=== PATIENT | male | born 1955 | race Caucasian/White ===

== ENCOUNTER 2017-06-22 11:00 | Emergency (ER) | payer BC ==
[2017-06-22 12:33] VITALS: BP 136/79
--- NOTE | 2017-06-22 13:10 | UC ---
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 he is outside a lot and could have gotten it at any time. denies fevers/chills/joint aches. no nausea or vomiting. His dtr encouraged him to come in. There is a red rash there now. he believes he got the whole thing out. - History of Current Complaint Chief Complaint: UCSkin Time Seen by Provider: 06/22/17 13:04 Stated Complaint: SKIN COMPLAINT UPPER THIGH - Allergy/Home Medications Allergies/Adverse Reactions: Allergies Allergy/AdvReac Type Severity Reaction Status Date / Time Penicillins Allergy Rash Verified 06/22/17 12:33 Home Medications: Home Medications Amlodipine Besylate-Benazepril [Lotrel 5-20 mg] 1 cap PO DAILY 06/22/17 [ History Confirmed 06/22/17] Hydrocodone-Ibuprofen [Reprexain] 1 tab PO Q5H 06/22/17 [History Confirmed 06/22] Lidocaine 5 % EX Q12H PRN 06/22/17 [History Confirmed 06/22/17] Metformin HCl 2,000 mg PO DAILY 06/22/17 [History Confirmed 06/22/17] Omeprazole CAP* [Prilosec CAP* 20 MG] 20 mg PO BID 06/22/17 [History Confirmed 06/22/17] Pioglitazone TAB* [Actos TAB*] 15 mg PO DAILY 06/22/17 [History Confirmed ] Review of Systems Constitutional: Negative Skin: Rash Eyes: Negative ENT: Negative Respiratory: Negative Cardiovascular: Negative Gastrointestinal: Negative Genitourinary: Negative Motor: Negative Neurovascular: Negative Musculoskeletal: Negative Neurological: Negative Psychological: Negative Is Patient Immunocompromised?: No All Other Systems Reviewed And Are Negative: Yes PMH/Surg Hx/FS Hx/Imm Hx Previously Healthy: Yes Endocrine History: Diabetes Cardiovascular History: Hypertension - Surgical History Surgical History: Yes Surgery Procedure, Year, and Place: RIGHT HIP REPLACEMENT--2008 - Family History Known Family History: Positive: Cardiac Disease - Social History Alcohol Use: None Substance Use Type: None Smoking Status (MU): Never Smoked Tobacco Physical Exam Triage Information Reviewed: Yes Appearance: Well-Appearing, No Pain Distress, Well-Nourished Vital Signs: Initial Vital Signs Temp 97.1 F 06/22/17 12:28 Pulse 73 06/22/17 12:28 Resp 16 06/22/17 12:28 BP 136/79 06/22/17 12:28 Pulse Ox 99 06/22/17 12:28 Vital Signs Reviewed: Yes Eye Exam: Normal ENT Exam: Normal ENT: Positive: Normal ENT inspection Dental Exam: Normal Neck exam: Normal Neck: Positive: Supple, Nontender, No Lymphadenopathy Respiratory Exam: Normal Respiratory: Positive: Lungs clear, Normal breath sounds, No respiratory distress, No accessory muscle use Cardiovascular Exam: Normal Cardiovascular: Positive: RRR, No Murmur, Pulses Normal Abdominal Exam: Normal Abdomen Description: Positive: Nontender, Soft Musculoskeletal Exam: Normal Neurological Exam: Normal Psychological Exam: Normal Skin: Positive: rashes - right upper medial thigh with golf ball sized erythematous rash with centralized darker red teller. no streaks, no discharge. Course/Dx - Course Course Of Treatment: uncertain duration of tic bite w/ rash. will treat with doxy x 21 days. - Differential Diagnoses - Skin Complaint Differential Diagnoses: Other - Erythema Migrans, lyme disease, tic bite - Diagnoses Provider Diagnoses: lyme disease, tic bite, erythema migrans Discharge - Discharge Plan Condition: Stable Disposition: HOME Prescriptions: Doxycycline (Monohydrate) [Doxycycline Monohydrate] 100 mg PO BID #21 cap Patient Education Materials: Tick Bite (ED), Lyme Disease (ED) Referrals: Tyrone Nava DO [Primary Care Provider] - 2 Days Additional Instructions: Make sure to take a probiotic daily while on antibiotics to help prevent a potential complication of antibiotic use called c diff. Some well known brands that can be found OTC are florastor, CFEngine and AGNITiO. Make sure to complete the entire prescription unless advised otherwise by your health care provider. -make sure to avoid sun exposure and take precautions to sunburn while you are on doxycycline.
== END 2017-06-22 13:25 | disposition home or self-care (01) ==
LOC: UCCORT 11:00
DX: S70.361A Insect bite (nonvenomous), right thigh, initial encounter (principal); A69.20 Lyme disease, unspecified; E11.9 Type 2 diabetes mellitus without complications; I10 Essential (primary) hypertension; W57.XXXA Bitten or stung by nonvenomous insect and other nonvenomous arthropods, initial encounter; Z96.641 Presence of right artificial hip joint; Z88.0 Allergy status to penicillin
CPT/HCPCS: 99212; G0463

== ENCOUNTER 2017-11-18 09:07 | Emergency (ER) | payer BC ==
[2017-11-18 10:50] VITALS: BP 157/73
--- NOTE | 2017-11-18 11:43 | ED ---
Throat Pain/Nasal Congestion - HPI Summary HPI Summary: 62 yr old male with the complaint of runny nose, cough, fatigue. Onset of symptoms three days. Denies SOB. He feels congested, and his ribs hurt from coughing so much. No fever. - History of Current Complaint Chief Complaint: UCGeneralIllness Time Seen by Provider: 11/18/17 10:56 - Allergies/Home Medications Allergies/Adverse Reactions: Allergies Allergy/AdvReac Type Severity Reaction Status Date / Time Penicillins Allergy Rash Verified 11/18/17 10:43 Home Medications: Home Medications Hydrocodone/Ibuprofen [Hydrocodone/Ibuprofen 5-200 mg] 1 tab PO QID PRN [History Confirmed 11/18/17] PMH/Surg Hx/FS Hx/Imm Hx Endocrine/Hematology History: Reports: Hx Diabetes Cardiovascular History: Reports: Hx Hypertension - Surgical History Surgery Procedure, Year, and Place: RIGHT HIP REPLACEMENT--2008 Infectious Disease History: No Infectious Disease History: Denies: Traveled Outside the [place] in Last 30 Days - Family History Known Family History: Positive: Cardiac Disease - Social History Alcohol Use: None Substance Use Type: Reports: None Smoking Status (MU): Never Smoked Tobacco Review of Systems Positive: Fatigue Positive: Nasal Discharge Positive: Cough All Other Systems Reviewed And Are Negative: Yes Physical Exam Triage Information Reviewed: Yes Vital Signs On Initial Exam: Initial Vitals Temp Pulse Resp BP Pulse Ox 98.9 F 85 16 157/73 95 11/18/17 10:45 11/18/17 10:45 11/18/17 10:45 11/18/17 10:45 11/18/17 10:45 Vital Signs Reviewed: Yes Appearance: Positive: Well-Appearing, No Pain Distress Skin: Positive: Warm, Skin Color Reflects Adequate Perfusion Head/Face: Positive: Normal Head/Face Inspection Eyes: Positive: EOMI ENT: Positive: Pharynx normal, Nasal congestion, TMs normal Respiratory/Lung Sounds: Positive: Clear to Auscultation, Breath Sounds Present Cardiovascular: Positive: RRR. Negative: Murmur Abdomen Description: Positive: Nontender Musculoskeletal: Positive: Strength/ROM Intact Neurological: Positive: Sensory/Motor Intact, Alert, Oriented to Person Place, Time, CN Intact II-III Psychiatric: Positive: Normal AVPU Assessment: Alert Diagnostics - Vital Signs Vital Signs Temp Pulse Resp BP Pulse Ox 11/18/17 10:45 98.9 F 85 16 157/73 95 - Laboratory Lab Results: Lab Results 11/18/17 Range/Units 11:13 Influenza A (Rapid) Negative (Negative) Influenza B (Rapid) Negative (Negative) Lab Statement: Any lab studies that have been ordered have been reviewed, and results considered in the medical decision making process. EENT Course/Dx - Course Course Of Treatment: 62 yr old with uri symtpoms. Rx tessalon. - Diagnoses Provider Diagnoses: Upper respiratory infection, Hypertension Discharge - Discharge Plan Condition: Good Disposition: HOME Prescriptions: Benzonatate CAP* [Tessalon 100 MG CAP*] 100 mg PO TID #14 cap Patient Education Materials: Upper Respiratory Infection (ED), Hypertension (ED ) Referrals: Elvia Vazquez PA [Primary Care Provider] - 2 Days
== END 2017-11-18 11:40 | disposition home or self-care (01) ==
LOC: UCCORT 09:07
DX: J06.9 Acute upper respiratory infection, unspecified (principal); I10 Essential (primary) hypertension; Z88.0 Allergy status to penicillin; E11.9 Type 2 diabetes mellitus without complications
CPT/HCPCS: 87502; 99212; G0463